=== PATIENT | female | born 1940 | race Caucasian/White ===

== ENCOUNTER 2016-11-13 00:39 | Emergency (ER) | payer MEDICARE ==
[~2016-11-13] VITALS: Ht 165.1 cm; Wt 42.0 kg
[~2016-11-13 00:39] MED LIST: ACET650T10 PO; CYCL5TAB PO; IBUP-1116 PO; LIDO5DIS35 TD
[2016-11-13 01:32] VITALS: BP 120/58; PULSE 58; RESP 20; TEMP 95; O2SAT 100
[2016-11-13] MEDS ORDERED: LOPE7.5C PO (01:43)
[2016-11-13] MEDS ORDERED: BENA25TA3 PO (01:43)
[2016-11-13] MEDS ORDERED: ZYRT10CA PO (01:43)
[2016-11-13] MEDS ORDERED: SENN8.6T17 PO (01:43)
[2016-11-13] MEDS ORDERED: AFRI0.052 EACH NARE (01:43)
[2016-11-13] MEDS ORDERED: CHOL4POW3 PO (01:43)
[2016-11-13] MEDS ORDERED: LIDOCAINE 1%/EPINEPHrine 1:100,000 SOLN 20 ML VIAL INFIL ONE (02:00)
--- NOTE | 2016-11-13 02:17 | RADRPT ---
EXAM DATE/TIME: 11/13/2016 01:58 [facility] COMPARISON: No previous studies available for comparison. INDICATIONS : Trauma. Fall. RADIATION DOSE: 28.59 CTDIvol (mGy) MEDICAL HISTORY : Dementia. SURGICAL HISTORY : None. ENCOUNTER: Initial ACUITY: 1 day PAIN SCALE: 2/10 LOCATION: Left cranial TECHNIQUE: Multiple contiguous axial images were obtained of the head. Using automated exposure control and adj ustment of the mA and/or kV according to patient size, radiation dose was kept as low as reasonably a chievable to obtain optimal diagnostic quality images. 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 The ventricles are normal for ag e. No evidence of midline shift, mass lesion, hemorrhage or acute infarction. No extra-axial fluid collections are seen. POSTERIOR FOSSA: The cerebellum and brainstem are intact. The 4th ventricle is midline. The cerebellopontine angle i s unremarkable. EXTRACRANIAL: The visualized portion of the orbits is intact. SKULL: The calvaria is intact. No evidence of skull fracture. CONCLUSION: No acute disease. Juan Ocampo Jr., MD on November 13, 2016 at 2:14 Board Certified Radiologist. This report was verified electronically.
--- NOTE | 2016-11-13 02:20 | RADRPT ---
EXAM DATE/TIME: 11/13/2016 01:58 [facility] COMPARISON: No previous studies available for comparison. INDICATIONS : Trauma. Fall. RADIATION DOSE: 7.55 CTDIvol (mGy) MEDICAL HISTORY : Dementia. SURGICAL HISTORY : None. ENCOUNTER: Initial ACUITY: 1 day PAIN SCALE: 2/10 LOCATION: neck TECHNIQUE: Volumetric scanning of the cervical spine was performed. Multiplanar reconstructions in the sagittal, coronal and oblique axial planes were performed. Using automated exposure control and adjustment o f the mA and/or kV according to patient size, radiation dose was kept as low as reasonably achievable to obtain optimal diagnostic quality images. FINDINGS: VERTEBRAE: Normal vertebral body height. ALIGNMENT: A mild grade 1 anterolisthesis of C2 on C3 with mild retrolisthesis of C5 on C6. C2-C3: The bony spinal canal is normal in size. No evidence of disc bulge or herniation. The neural forami na are bilaterally patent. C3-C4: The bony spinal canal is normal in size. No evidence of disc bulge or herniation. The neural forami na are bilaterally patent. C4-C5: The bony spinal canal is normal in size. No evidence of disc bulge or herniation. The neural forami na are bilaterally patent. C5-C6: Disc space narrowing with broad-based disc osteophyte complex. No central canal stenosis. Bony uncove rtebral hypertrophy generates bilateral neural foraminal narrowing. C6-C7: Disc space narrowing with broad-based disc osteophyte complex. No central canal stenosis. Bony uncove rtebral hypertrophy generates bilateral neural foraminal narrowing. C7-T1: The bony spinal canal is normal in size. No evidence of disc bulge or herniation. The neural forami na are bilaterally patent. CONCLUSION: 1. No fracture or dislocation. 2. Degenerative changes. Juan Ocampo Jr., MD on November 13, 2016 at 2:15 Board Certified Radiologist. This report was verified electronically.
--- NOTE | 2016-11-13 02:24 | RADRPT ---
EXAM DATE/TIME: 11/13/2016 01:58 [facility] COMPARISON: No previous studies available for comparison. INDICATIONS : Trauma. Fall. RADIATION DOSE: 29.45 CTDIvol (mGy) MEDICAL HISTORY : Dementia. SURGICAL HISTORY : None. ENCOUNTER: Initial ACUITY: 1 day PAIN SCORE: 2/10 LOCATION: Left facial TECHNIQUE: Volumetric scanning of the facial bones was performed. Using automated exposure control and adjustme nt of the mA and/or kV according to patient size, radiation dose was kept as low as reasonably achiev able to obtain optimal diagnostic quality images. FINDINGS: ORBITS: The orbital and infraorbital osseous structures are intact. The retroconal structures have a normal configuration. No radiopaque foreign bodies are seen. NASAL BONE: The nasal bone and maxillary spine are intact ZYGOMATIC ARCHES: Symmetric without evidence of fracture. SINUSES: The maxillary, ethmoid and frontal sinuses are intact. No air-fluid levels seen. NASAL CAVITY: The nasal septum is intact and midline. The lacrimal ducts are intact. SOFT TISSUES: No radiopaque foreign bodies seen. No soft-tissue swelling is seen. INTRACRANIAL: No intracranial air seen. CRIBIFORM PLATE: Grossly intact. 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 CONCLUSION: 1. No fracture or dislocation. 2. Suspected mild fusiform dilatation of the right carotid artery. An outpatient CTA of the carotids is suggested to evaluate. Juan Ocampo Jr., MD on November 13, 2016 at 2:19 Board Certified Radiologist. This report was verified electronically.
--- NOTE | 2016-11-13 02:31 | PD ---
Physical Exam Date Seen by Provider: November 13, 2016 Time Seen by Provider: 02:29 Narrative Skin: Patient has a laceration involving the left upper lip through the vermilion border. The overlying skin is avulsed and has a superficial flap. Laceration measures 2 cm. Data Data Last Documented VS Vital Signs Date Time Temp Pulse Resp B/P Pulse Ox O2 Delivery O2 Flow Rate FiO2 11/13/16 01:32 95.0 58 20 120/[address] Brain W/O Iv Contrast(Rout) (11/13/16 01:17) Ct Cerv Spine W/O Contrast (11/13/16 01:17) Ct Facial Bones W/O Iv Cont (11/13/16:17) Lidocai-Epi 1%-1:100,000 Inj (Xylocaine- (11/13/16 02:00) MDM Medical Record Reviewed: Yes Supervised Visit with MANDO: Yes Interpretation(s) Last [address] 11/13/16116 Signed Impressions: Service Date/Time: Sunday, November 13, 2016 01:58 - CONCLUSION: No acute disease. Juan Ocampo Jr., MD Cervical Spine CT 11/13/16116 Signed Impressions: Service Date/Time: Sunday, November 13, 2016 01:58 - CONCLUSION: 1. No fracture or dislocation. 2. Degenerative changes. Juan Ocampo Jr., MD Differential Diagnosis MDM: High Differential diagnoses: Fracture, sprain, strain, dislocation, contusion, neurovascular injury Narrative Course Patient's upper left lip lacerations closed with sutures. Procedures Procedure Narrative LACERATION LOCATION: Left upper lip through the vermilion border LENGTH: 2 cm NUMBER OF STITCHES/TY: 5 REPAIR: The area of the laceration was prepped with Betadine and sterilely draped. The laceration was infiltrated with 1% lidocaine with epinephrine. The wound was copiously irrigated and explored without evidence of foreign body , tendon injury or neurovascular injury. The wound was closed using 5-0 plain gut. This was a simple single layer repair. A sterile dressing was applied. The patient was advised to keep the dressing clean and dry. Patient tolerated the procedure well. Additional Instruction: Rest. Ice pack tonight. Tylenol or Advil for pain. Daily wound care with soap, water, Neosporin. Sutures are dissolvable and do not need to be removed.. Sunscreen and mederma for 6 months. Return to the ER for any problems. Luis Navas November 13, 2016 02:31
--- NOTE | 2016-11-13 02:43 | PD ---
HPI Chief Complaint: Fall Time Seen by Provider: 00:54 Travel History International Travel<30 days: No Contact w/Intl Traveler<30days: No Traveled to known affect area: No History of Present Illness HPI The patient is a 76 year old female who presents to the [facility] emergency department with a history of reportedly having a dream and rolling out of bed striking her left side of her face on her bedside table. She denies having a loss of consciousness. She denies having any nausea or vomiting after the head injury. She reports that she has a laceration above the left side of her lip. The patient also has swelling to the left cheek and ecchymosis developing around the left eye. The patient denies taking any blood thinners or aspirin. She denies having any neck pain, paresthesias, or weakness in her extremities. She denies having any chest pain, chest pressure, or shortness of breath. Review of systems otherwise she denies any recent fevers, cough, congestion, abdominal pain, diarrhea, urinary symptoms, or other neurologic symptoms. PFSH Past Medical History Narrative Medical The patient's past medical history is significant for osteoporosis, history of a compression fracture of her back. Dementia: Yes Tetanus Vaccination: Unknown Influenza Vaccination: No Past Surgical History Narrative Surgical The patient's past surgical history is reportedly none. Social History Alcohol Use: No Tobacco Use: No Substance Use: No Allergies-Medications (Allergen,Severity, Reaction): Coded Allergies: Bactrim (Verified Allergy, Intermediate, Nausea/Vomiting, 11/13/16) Reported Meds & Prescriptions Reported Meds & Active Scripts Active Acetaminophen Er (Acetaminophen) 650 Mg Tab 650 Mg PO Q6H PRN Reported Benadryl Allergy (Diphenhydramine HCl) 25 Mg Tab 25 Mg PO HS PRN Zyrtec Allergy (Cetirizine HCl) 10 Mg Cap 10 Mg PO DAILY Afrin Nasal [place] (Oxymetazoline HCl) 0.05% [place] 2-3 [place] EACH NARE Q12H PRN Imodium A-D (Loperamide HCl) 2 Mg Cap 2 Mg PO Q6H PRN Sennalax-S 8.6-50 mg (Sennosides-Docusate Sodium) 1 Tab Tab 8.6 PO PRN 1 Days Cholestyramine 4 Gm/Dose Powd 4 Gm PO BID 1 level scoopful of powder contains 4 grams of cholestyramine. Advil 200 Mg Tab (Ibuprofen) 200 Mg Tab 600 Mg PO Q8 PRN Review of Systems Except as stated in HPI: all other systems reviewed are Neg General / Constitutional: No: Fever Eyes: No: Visual changes HENT: Positive: Headaches, No: Rhinorrhea, Congestion, Neck Stiffness, Neck Pain Cardiovascular: No: Chest Pain or Discomfort Respiratory: No: Shortness of Breath Gastrointestinal: No: Abdominal Pain Genitourinary: No: Dysuria Musculoskeletal: No: Pain Skin: No Rash Neurologic: Positive: Headache, No: Weakness, Focal Abnormalities, Change in Mentation, Slurred Speech, Sensory Disturbance Psychiatric: No: Depression Endocrine: No: Polydipsia Hematologic/Lymphatic: No: Easy Bruising Physical Exam Narrative General: The patient is a well-developed well-nourished female in no acute distress. Head and Neck exam: Head is normocephalic, with evidence of trauma to the left side of the face. The patient has swelling to the left cheek with ecchymosis developing. The patient has ecchymosis developing beneath the left eye was some swelling noted. The patient has a laceration that is triangular in shape on the left upper lip. She has tenderness on palpation of the left cheek. There is no crepitus or step-off. No increase facial bone mobility. Eyes: EOMI, pupils are equal round and reactive to light. Nose: Midline septum with pink mucous membranes Mouth: Dentition unremarkable. Moist mucus membranes. Posterior oropharynx is not erythematous. No tonsillar hypertrophy. Uvula midline. Airway patent. Neck: No palpable lymphadenopathy. No nuchal rigidity. No thyromegaly. No spinous process tenderness to palpation, no step-off or crepitus, no erythema or ecchymosis. Cardiovascular: Regular rate and rhythm without murmurs, gallops, or rubs. Lungs: Clear to auscultation bilaterally. No wheezes, rhonchi, or rales. Abdomen: Soft, without tenderness to palpation in all 4 quadrants of the abdomen. No guarding, rebound, or rigidity. Normal bowel sounds are audible. No tenderness on palpation of McBurney's point. Negative Doyle's sign. Extremities: No clubbing, cyanosis, or edema. 2+ pulses in all 4 extremities. No calf tenderness on palpation. Back: No costovertebral angle tenderness to palpation. Neurologic Exam: Cranial nerves 2-12 were intact on exam. Strength is 5/5 in all 4 extremities. No sensory deficits noted. Skin Exam: No rash noted. Data Data Last Documented VS Vital Signs Date Time Temp Pulse Resp B/P Pulse Ox O2 Delivery O2 Flow Rate FiO2 11/13/16 01:32 95.0 58 20 120/[address] Brain W/O Iv Contrast(Rout) (11/13/16:17) Ct Cerv Spine W/O Contrast (11/13/16 01:17) Ct Facial Bones W/O Iv Cont (11/13/16 01:17) Lidocai-Epi 1%-1:100,000 Inj (Xylocaine- (11/13/16 02:00) MDM Medical Decision Making Medical Screen Exam Complete: Yes Emergency Medical Condition: Yes Medical Record Reviewed: Yes Differential Diagnosis Intracranial hemorrhage, versus cervical spine injury, versus facial bone fracture, versus contusion and laceration Narrative Course During the course of the patients emergency department visit, the patients history, examination, and differential diagnosis were reviewed with the patient. The patient had a CT scan of the head, neck, facial bones was ordered. Luis Leon the physician assistant account executive was consultative regarding wound cleansing and repair The patient was initially provided an update to her tetanus. The patient was given Keflex 500 by mouth 1. Denies pack was applied. Radiology studies were reviewed and remarkable for a CT scan of the brain that shows no acute abnormality, CT scan of the facial bones shows no fracture or dislocation, suspected mild fusiform dilatation of the right carotid artery, an outpatient CTA of the carotids is suggested to evaluate. CT scan of the C- spine shows degenerative changes, no acute abnormality. The patient was given a copy of her CT scan findings regarding her carotid. The patient was given a lab slip for a CTA of the neck to further evaluate with her primary care physician for follow-up. The patient is instructed to follow- up with her primary care physician for reexamination in 2 days. The patient is resting comfortably and feels better, is alert and in no distress. The patients results and examination findings were discussed with the patient. The repeat examination is unremarkable and benign. The history, exam, diagnostic testing, and current condition do not suggest any significant pathology to warrant further testing, continued ED treatment, admission, or surgical evaluation at this point. The vital signs have been stable. The patient does not have uncontrollable pain, intractable vomiting, or other significant symptoms. The patient's condition is stable and appropriate for discharge. The patient will pursue further outpatient evaluation with a primary care physician or other designated or consulting physician as indicated in the discharge instructions. The patient expressed understanding and was agreeable with this plan. Diagnosis Primary Impression: Head injury Qualified Code: S09.90XA - Head injury, initial encounter Additional Impressions: Facial laceration Qualified Code: S01.81XA - Facial laceration, initial encounter Facial contusion Qualified Code: S00.83XA - Facial contusion, initial encounter Referrals: Primary Care Physician Patient Instructions: Facial Laceration (ED), General Instructions, Head Injury (ED) Additional Instructions: Rest. Ice pack tonight. Tylenol or Advil for pain. Daily wound care with soap, water, Neosporin. Sutures are dissolvable and do not need to be removed.. Sunscreen and mederma for 6 months. Return to the ER for any problems. The patient is instructed regarding a suspected mild fusiform dilatation of the right carotid. The radiologist recommended an outpatient CTA of the carotids to further evaluate. The patient is given a lab slip to obtain this as an outpatient and follow-up with her primary care physician for follow-up. Disposition: 01 DISCHARGE HOME Condition: Stable Barbara Johnson MD November 13, 2016 02:43
[2016-11-13] MEDS ORDERED: DIPHTH/TETANUS/ACEL PERTUSSIS (BOOSTER) 0.5 ML VIAL/PFS IM ONE (02:45)
[2016-11-13] MEDS ORDERED: ACETAMINOPHEN 325 MG TAB PO ONE (02:45)
[2016-11-13] MEDS ORDERED: CEPHALEXIN MONOHYDRATE 500 MG CAP PO ONE (02:45)
[2016-11-13 03:00] VITALS: BP 110/60; PULSE 68; RESP 20; O2SAT 98
[2016-11-13 05:14] VITALS: BP 102/60
== END 2016-11-13 05:16 | disposition home or self-care (01) ==
LOC: NEPE 00:39
DX: S01.81XA Laceration without foreign body of other part of head, initial encounter (principal); W06.XXXA Fall from bed, initial encounter; Y93.84 Activity, sleeping; Z23 Encounter for immunization
CPT/HCPCS: 12011; 70450; 70486; 72125; 90471; 90715

== ENCOUNTER 2018-02-27 04:25 | Inpatient (IN) ==
[2018-02-27] MEDS ORDERED: Morphine Sulfate Inj 2 MG/ML Vial IV.PUSH ONE (04:34)
--- NOTE | 2018-02-27 04:37 | ED ---
HPI General Chief Complaint: Fall Stated Complaint: Dizziness,Evac Time Seen by Provider: 02/27/18 04:33 Source: patient and EMS Mode of arrival: ambulatory Limitations: no limitations History of Present Illness HPI Narrative: 77-year-old female arrives complaining of left hip pain. She stood up this evening and felt dizzy and fell to the ground. She landed on left side. She has had constant pain since then. The pain is worse with attempts at moving the left leg. No head trauma. The patient reports chronic dizziness upon standing for several months. No fever chills. No loss conscious. MD complaint: fall Onset (ago): hour(s) (2) Fall from: standing Place fall occurred: [facility] Loss of consciousness: none Prolonged down time: no Symptoms prior to fall: dizziness Related Data Home Medications Medication Instructions Recorded Confirmed sulfamethoxazole-trimethoprim 1 tab PO BID 02/27/18 02/27/18 [Bactrim] Allergies Allergy/AdvReac Type Severity Reaction Status Date / Time sulfamethoxazole Allergy Intermediate Nausea/Vomi Unverified 02/18/17 20:05 ting trimethoprim Allergy Intermediate Nausea/Vomi Unverified 02/18/17 20:05 ting Review of Systems ROS: all other systems reviewed are negative [facility] Medical History Medical History Back pain (Acute) Chronic pain (Acute) Inflammatory bowel disease (Acute) Irritable bowel disease (Acute) Social History Social History Substance History: No History of Abuse Smoking Status: Former smoker Tobacco Type: Cigarettes How Often Do You Have a Drink Containing Alcohol: Never Recent Travel in [facility] within the Last 8 Weeks: No Recent Out of Country Travel within the Last 8 Weeks: No Exam Narrative Exam Narrative: GENERAL: 77-year-old female thin, AO 3, minimal distress secondary to pain SKIN: Focused skin assessment warm/dry. HEAD: Atraumatic. Normocephalic. EYES: Pupils equal and round. No scleral icterus. No injection or drainage. ENT: No nasal bleeding or discharge. Mucous membranes pink and moist. NECK: Trachea midline. No JVD. CARDIOVASCULAR: Regular rate and rhythm. No murmur appreciated. RESPIRATORY: No accessory muscle use. Clear to auscultation. Breath sounds equal bilaterally. GASTROINTESTINAL: Abdomen soft, non-tender, nondistended. Hepatic and splenic margins not palpable. MUSCULOSKELETAL: No gross deformity. Pain with axial load of the left lower extremity. Patient is able to actively flex the hip and knee although limited on the left side. Right lower extremity flexion at knee and hip grossly preserved. NEUROLOGICAL: Awake and alert. No obvious cranial nerve deficits. Motor grossly within normal limits. Normal speech. PSYCHIATRIC: Appropriate mood and affect; insight and judgment normal. Course Initial Documented Vital Signs Temperature 98.2 F 02/27/18 04:31 Pulse Rate 79 02/27/18 04:31 Respiratory Rate 14 02/27/18 04:31 Blood Pressure 102/55 L 02/27/18 04:31 Pulse Oximetry 98 02/27/18 04:31 Last Documented Vital Signs Temperature 98.2 F 02/27/18 04:31 Pulse Rate 79 02/27/18 04:31 Respiratory Rate 14 02/27/18 04:31 Blood Pressure 102/55 L 02/27/18 04:31 Pulse Oximetry 98 02/27/18 04:33 Medical Decision Making MDM Narrative Medical decision making narrative: Pt has pubic rami fractures. Pt lives alone in an [facility]PC. Pt reports she is typically able to cook and bathe herself and perform basic frame opener. She has a walker at home but has not had to use it. Call placed to the [facility]. d/w Dr Norwood. 23 hour obs for pain control and gait evaluation/PT. Medical Screen Exam Complete: Yes Emergency Medical Condition: Yes Lab Data Lab results reviewed: Yes I reviewed the patient's lab results. Result diagrams: 02/27/18 05:20 02/27/18 05:20 Lab Results 02/27/18 02/27/18 Range/Units 05:20 05:20 WBC 8.1 (4.0-11.0) th/mm3 RBC 3.80 L (4.00-5.30) mil/mm3 Hgb 11.1 L (11.6-15.3) gm/dL Hct 30.9 L (35.0-46.0) % MCV 81.4 (80.0-100.0) fL MCH 29.1 (27.0-34.0) pg MCHC 35.7 (32.0-36.0) % RDW 20.3 H (11.6-17.2) % Plt Count 245 (150-450) th/mm3 MPV 7.7 (7.0-11.0) fL Prelim Diff (Auto) Slide review pending Neut % (Auto) 95.5 H (16.0-70.0) % Lymph % (Auto) 1.2 L (9.0-44.0) % [place] % (Auto) 2.7 (0.0-8.0) % Eos % (Auto) 0.0 (0.0-4.0) % Baso % (Auto) 0.6 (0.0-2.0) % Neut # (Auto) 7.7 (1.8-7.7) th/mm3 Lymph # (Auto) 0.1 L (1.0-4.8) th/mm3 [place] # (Auto) 0.2 (0.0-0.9) th/mm3 Eos # (Auto) 0.0 (0.0-0.4) th/mm3 Baso # (Auto) 0.1 (0.0-0.2) th/mm3 WBC Differential . Diff Scan Auto diff confirmed Differential Comment . Ovalocytes 1+ H (None) Sodium 133 L (136-145) meq/L Potassium 3.5 (3.5-5.1) meq/L Chloride 97 L (98-107) meq/L Carbon Dioxide 26.9 (21.0-32.0) meq/L Anion Gap 9 (5-15) meq/L BUN 15 (7-18) mg/dL Creatinine 0.84 (0.50-1.00) mg/dL Estimated GFR 66 L (>89) mL/min Random Glucose 88 (74-106) mg/dL Calcium 8.2 L (8.5-10.1) mg/dL Total Bilirubin 0.5 (0.2-1.0) mg/dL AST 30 (15-37) U/L ALT 25 (10-53) U/L Alkaline Phosphatase 148 H (45-117) U/L Total Protein 6.7 (6.4-8.2) g/dL Albumin 3.5 (3.4-5.0) g/dL Imaging Data Attestation: I personally reviewed and interpreted this imaging study as follows : My impression: Femur xray: pubic rami fractures, femur intact Pelvix xray: pubic rami fractures, femur intact Radiologist's impression: Femur X-Ray 02/27/18 04:33 CONCLUSION: 1. Fracture through the superior and inferior pubic rami on the left. 2. Femur itself is intact Hip X-Ray 02/27/18 04:33 CONCLUSION: 1. The hip itself is intact. 2. However, there are fractures through the superior and inferior pubic rami on the left Discharge Plan Discharge Disposition Patient Disposition: 30 Still Patient Physicians Team ED Provider: Jimbo Martínez Primary Care Provider: Primary Care Gwendolyn Murray Attending Provider: Sebastien Mason Discharge Interventions Interventions: Vital Signs Last Done: 02/27/18 04:37 Status ED Status: Admitted Observation Patient
[2018-02-27 05:43] LABS: Baso # (Auto) 0.1 th/mm3 (0.0-0.2); Baso % (Auto) 0.6 % (0.0-2.0); Hematocrit 30.9 % (35.0-46.0); Hemoglobin 11.1 gm/dL (11.6-15.3); Lymph # (Auto) 0.1 th/mm3 (1.0-4.8); Lymph % (Auto) 1.2 % (9.0-44.0); Mean Corpuscular HGB Conc 35.7 % (32.0-36.0); Mean Corpuscular Hemoglobin 29.1 pg (27.0-34.0); Mean Corpuscular Volume 81.4 fL (80.0-100.0); Mean Platelet Volume 7.7 fL (7.0-11.0); Mono # (Auto) 0.2 th/mm3 (0.0-0.9); Mono % (Auto) 2.7 % (0.0-8.0); Neut # (Auto) 7.7 th/mm3 (1.8-7.7); Neut % (Auto) 95.5 % (16.0-70.0); Platelet Count 245 th/mm3 (150-450); Red Cell Distribution Width 20.3 % (11.6-17.2); White Blood Count 8.1 th/mm3 (4.0-11.0)
[2018-02-27 05:45] LABS: Alanine Aminotransferase 25 U/L (10-53)
[2018-02-27 05:47] LABS: Alkaline Phosphatase 148 U/L (45-117); Total Protein 6.7 g/dL (6.4-8.2)
[2018-02-27 05:48] LABS: Albumin 3.5 g/dL (3.4-5.0); Aspartate Aminotransferase 30 U/L (15-37); Blood Urea Nitrogen 15 mg/dL (7-18); Calcium 8.2 mg/dL (8.5-10.1); Carbon Dioxide 26.9 meq/L (21.0-32.0); Chloride 97 meq/L (98-107); Glomerular Filtration Rate 66 mL/min (>89); Glucose,Random 88 mg/dL (74-106); Potassium 3.5 meq/L (3.5-5.1)
--- NOTE | 2018-02-27 05:53 | XR ---
EXAM DATE: 02/27/2018 5:12 AM EDT AGE/SEX: 77 years / Female INDICATIONS: Patient fell today. Left side groin pain since. CLINICAL DATA: This is the patient's initial encounter. Patient reports that signs and symptoms have been present for 1 day and indicates a pain score of 0/10. MEDICAL/SURGICAL HISTORY: Dementia. None. COMPARISON: [facility], HIP LEFT W AP PELVIS 2V, 02/27/2018. . FINDINGS: Mildly displaced fracture through the superior and inferior pubic rami on the left. Femur itself is i ntact CONCLUSION: 1. Fracture through the superior and inferior pubic rami on the left. 2. Femur itself is intact Electronically signed by: Niranjan Silverman MD 02/27/2018 5:52 AM EDT
--- NOTE | 2018-02-27 05:55 | XR ---
EXAM DATE: 02/27/2018 5:12 AM EDT AGE/SEX: 77 years / Female INDICATIONS: Left side groin pain post fall today. CLINICAL DATA: This is the patient's initial encounter. Patient reports that signs and symptoms have been present for 1 day and indicates a pain score of 0/10. MEDICAL/SURGICAL HISTORY: Dementia. None. COMPARISON: No prior exams available for comparison. FINDINGS: Fracture through the superior and probable inferior pubic rami on the left. Proximal femur appears to be intact CONCLUSION: 1. The hip itself is intact. 2. However, there are fractures through the superior and inferior pubic rami on the left Electronically signed by: Niranjan Silverman MD 02/27/2018 5:53 AM EDT
[2018-02-27 06:09] LABS: Ovalocytes 1+
[2018-02-27 06:12] LABS: Anion Gap 9 meq/L (5-15); Sodium 133 meq/L (136-145)
--- NOTE | 2018-02-27 08:13 | P.HPIM ---
History of Present Illness Primary Care Physician: Dr. Ike Ahuja History of Present Illness: Ms. Villarreal is a pleasant 77 y/o WF with hypotension, osteoporosis, chronic protein malnutrition, and hx of thoracic and lumbar compression fractures. She currently lives alone at [facility]. She reports that last night around 4 or 5 AM she woke up to use the bathroom and then started getting dressed. She states that she started feeling lightheaded after that and lost her balance and then fell onto her left side. She reports having severe pain in the left hip/high and on her lower back on the left side since the fall. She was brought to the ED for further evaluation. In the ED she was evaluated with a Femur X-Ray and a Hip X-Ray which noted fractures through the superior and inferior pubic rami on the left but the femur and hip were intact. She does not want any narcotic pain medications as she states that they "do not agree with her." Pt notes that for the last several months she has had issues with intermittent dizziness and lightheadedness. She was hospitalized at [facility] in 09/2017 and 10/2017 related to dizziness and syncope and sustained a lumbar compression fracture found during the hospitalization. She has issues with hypotension and was placed on Midodrine at that time as well. Its not clear if the pts dizziness/lightheadedness was previously attributed to her hypotension. Past Medical Hx: Thoracic and lumbar compression fractures, followed by Dr. Roberts Hypoalbuminemia, chronic protein malnutrition Osteoporosis Hypotension LE cellulitis in 10/2017 Iron deficiency anemia Irritable bowel syndrome (No previous colonoscopy) 2D echo (09/21/17): - Mild LVH - Estimated EF 55-60% - RV mildly dilated - RA is moderate to severely dilated - Aortic valve leaflets are mildly thickened - Mitral valve leaflets are mildly thickened. Mild mitral regurg - Moderate tricuspid regurg. RVSP is 27mmHg Past Surgical Hx: Thoracentesis on 10/16/17, right sided Tonsillectomy Family Hx: Noncontributory Social Hx: Denies any alcohol, tobacco or illicit drug use Pt lives at [facility]. She lives alone Pt is a Sh[employer] - Diagnosis (1) Pelvic fracture (2) Dizziness (3) Hypotension Review of Systems Constitutional: Denies chills, Denies fever(s) Eyes: Denies double vision, Denies loss of vision Ears, Nose, Mouth, and Throat: Reports dizziness, Denies headache(s), Denies nasal congestion Cardiovascular: Reports lightheadedness, Denies chest pain, Denies generalized swelling, Denies leg swelling, Denies shortness of breath Respiratory: Denies cough, Denies shortness of breath, Denies wheezing Gastrointestinal: Denies abdominal pain, Denies nausea, Denies vomiting Genitourinary: Denies urinary incontinence, Denies urinary urgency Musculoskeletal: Reports back pain, Reports joint pain Skin/Breast: Denies rash Neurologic: Reports dizziness, Denies fainting, Denies loss of vision, Denies numbness, Denies sensory deficit, Denies tingling/numbness/burning sensations PMFSH - History History Provided By: Patient - Medical History Medical History: Medical History (Last Reviewed 02/27/18 @ 08:41 by Jose Carlos Negron) Back pain Chronic pain Inflammatory bowel disease Irritable bowel disease - Tobacco History Smoking Status: Former smoker Tobacco Type: Cigarettes - Alcohol History How Often Do You Have a Drink Containing Alcohol: Never - Substance Use History Substance History: No History of Abuse - Travel History Recent Travel in the [facility] Within the Last 8 Weeks: No Recent Travel Out of the Country Within the Last 8 Weeks: No - Immunization History Tetanus Immunization: >5 Years Hx Influenza Vaccine This Season: No Medications and Allergies Active Medications: Active Medications Hydrocodone Bitart/Acetaminophen (Loving 5/325) 1 tab PO Q6H PRN PRN Reason: pain level 3-10 Ondansetron HCl (Zofran Inj) 4 mg IV.PUSH Q6H PRN PRN Reason: nausea, vomiting Sodium Chloride (Ns Flush) 2 ml IV.FLUSH UNSCH PRN PRN Reason: FLUSH AFTER USING IV ACCESS Allergies Allergy/AdvReac Type Severity Reaction Status Date / Time sulfamethoxazole Allergy Intermediate Nausea/Vomi Verified 02/27/18 10:02 ting trimethoprim Allergy Intermediate Nausea/Vomi Verified 02/27/18 10:02 ting Home Medications Medication Instructions Recorded Confirmed Type sulfamethoxazole-trimethoprim 1 tab PO BID 02/27/18 02/27/18 History [Bactrim] Exam Vital signs: Vital Signs 02/27/18 04:31 02/27/18 04:33 Temperature 98.2 F Pulse Rate 79 Respiratory Rate 14 Blood Pressure 102/55 L Pulse Oximetry 98 98 Intake & Output 08/23/18 08/24/18 08/24/18 18:59 06:59 18:59 Weight 38.555 kg Narrative: GENERAL: Thin, elderly female in NAD, AAOx3 SKIN: Two skin tears on the right paige, does not appear acutely infected HEAD: Atraumatic. Normocephalic. Pupils equal and round. No scleral icterus. No injection or drainage. No nasal bleeding or discharge. Mucous membranes pink and moist. NECK: Trachea midline. No JVD. CARDIO: Regular rate and rhythm. RESP: No accessory muscle use. Clear to auscultation. Breath sounds equal bilaterally. ABD: +BS, soft, non-tender, nondistended. EXT: Extremities without clubbing, cyanosis, or edema. NEURO: Awake and alert. No obvious cranial nerve deficits. Motor grossly within normal limits. Five out of 5 muscle strength in the arms and legs. Normal speech. PSYCHIATRIC: Appropriate mood and affect; insight and judgment normal. Results - Labs CBC & Chem 7: 02/27/18 05:20 02/27/18 05:20 Labs: Short CBC 02/27/18 Range/Units 05:20 WBC 8.1 (4.0-11.0) th/mm3 Hgb 11.1 L (11.6-15.3) gm/dL Hct 30.9 L (35.0-46.0) % Plt Count 245 (150-450) th/mm3 BMP 02/27/18 05:20 Sodium 133 L Potassium 3.5 Chloride 97 L Carbon Dioxide 26.9 BUN 15 Creatinine 0.84 Calcium 8.2 L Liver Function 02/27/18 Range/Units 05:20 Total Bilirubin 0.5 (0.2-1.0) mg/dL AST 30 (15-37) U/L ALT 25 (10-53) U/L Alkaline Phosphatase 148 H (45-117) U/L Albumin 3.5 (3.4-5.0) g/dL - Imaging Impressions Femur X-Ray 02/27/18 04:33 CONCLUSION: 1. Fracture through the superior and inferior pubic rami on the left. 2. Femur itself is intact Hip X-Ray 02/27/18 04:33 CONCLUSION: 1. The hip itself is intact. 2. However, there are fractures through the superior and inferior pubic rami on the left Caprini VTE Risk Assessment Caprini VTE Risk Assessment: Moderate/High Risk (score >= 2) Caprini Risk Assessment Model: Point Value = 1 Point Value = 2 Point Value = 3 Point Value = 5 Age 41-60 Minor surgery BMI > 25 kg/m2 Swollen legs Varicose veins or History of unexplained or recurrent spontaneous Oral contraceptives or hormone replacement Sepsis (< 1 month) Serious lung disease, including pneumonia (< 1 month) Abnormal pulmonary function Acute myocardial infarction Congestive heart failure (< 1 month) History of inflammatory bowel disease Medical patient at bed rest Age 61-74 Arthroscopic surgery Major open surgery (> 45 min) Laparoscopic surgery (> 45 min) Malignancy Confined to bed (> 72 hours) Immobilizing plaster cast Central venous access Age >= 75 History of VTE Family history of VTE Factor V Leiden Prothrombin [id number] Lupus anticoagulant Anticardiolipin antibodies Elevated serum homocysteine Heparin-induced thrombocytopenia Other congenital or acquired thrombophilia Stroke (< 1 month) Elective arthroplasty Hip, pelvis, or leg fracture Acute spinal cord injury (< 1 month) Prophylaxis Regimen: Total Risk Factor Score Risk Level Prophylaxis Regimen 0-1 Low Early ambulation 2 Moderate Order ONE of the following: *Sequential Compression Device (SCD) *Heparin 5000 units SQ BID 3-4 Higher Order ONE of the following medications: *Heparin 5000 units SQ TID *Enoxaparin/Lovenox 40 mg SQ daily (WT < 150 kg, CrCl > 30 mL/min) *Enoxaparin/Lovenox 30 mg SQ daily (WT < 150 kg, CrCl > 10-29 mL/min) *Enoxaparin/Lovenox 30 mg SQ BID (WT < 150 kg, CrCl > 30 mL/min) AND/OR *Sequential Compression Device (SCD) 5 or more Highest Order ONE of the following medications: *Heparin 5000 units SQ TID (Preferred with Epidurals) *Enoxaparin/Lovenox 40 mg SQ daily (WT < 150 kg, CrCl > 30 mL/min) *Enoxaparin/Lovenox 30 mg SQ daily (WT < 150 kg, CrCl > 10-29 mL/min) *Enoxaparin/Lovenox 30 mg SQ BID (WT < 150 kg, CrCl > 30 mL/min) AND *Sequential Compression Device (SCD) Assessment and Plan - Assessment (1) Pelvic fracture Code(s): S32.9XXA - Fracture of unspecified parts of lumbosacral spine and pelvis, initial encounter for closed fracture Status: Acute Plan: Superior and inferior pelvic rami fracture on left - Pt is a 77 y/o WF with hypotension, osteoporosis, chronic protein malnutrition , and hx of thoracic and lumbar compression fractures. - Overnight she started feeling lightheaded after that and lost her balance and then fell onto her left side. She reports having severe pain in the left hip/ high and on her lower back on the left side since the fall. - In the ED she was evaluated with a Femur X-Ray and a Hip X-Ray which noted fractures through the superior and inferior pubic rami on the left but the femur and hip were intact. - Pt does not want any narcotic pain meds - Tylenol and Ofirmev PRN for pain - PT evaluation - CM consultation for SNF placement - Consult wound care nurse for evaluation of skin tears. Pt had been started on Bactrim yesterday for the skin tears but currently they do not appear infected. Hold off on resuming any oral antibiotics at this time. - Supportive care Dizziness/lightheadedness Hypotension - Pt notes that for the last several months she has had issues with intermittent dizziness and lightheadedness. - She was hospitalized at [facility] in 09/2017 and 10/2017 related to dizziness and syncope and sustained a lumbar compression fracture found during the hospitalization. - She has issues with hypotension and was placed on Midodrine at that time as well but is no longer taking this. - Its not clear if the pts dizziness/lightheadedness was previously attributed to her hypotension. - Place pt on telemetry - Check orthostatic vital signs - Encourage oral intake, add supplements with Ensure TID - PT ordered (2) Dizziness Code(s): R42 - Dizziness and giddiness Status: Acute (3) Hypotension Code(s): I95.9 - Hypotension, unspecified Status: Acute
--- NOTE | 2018-02-27 11:35 | P.PNWCN ---
Wound Care Nurse Consult Description: wound consult ordered by Alvina ROMAN Communicated with: [place] ANTUNEZ, Alvina ROMAN Recommendation: 1. Cleanse right lower extremity skin tear with normal saline pat dry. 2. Skin prep rosemarie wound, apply thin layer of bacitracin oint to open area . 3. Cover with Versatel silicone contact layer, Versatel to remain in place x7 days. 4. Secure with rolled gauze, Sign and date all dressings.Change secondary dressing as needed for dislodgement/exudate. Additional information: Supplies delivered to patients room for skin tear to right paige.[place] ANTUNEZ to apply dressing per wound care guide lines. Wound/Pressure Injury - Wound Right Paige Wound Assessment: Admission Wound Type: Skin Tear Is This a Chronic Wound: No Requested from Provider a Wound Care Consult: (wound care has seen patient) Wound Bed Appearance: Red Surrounding Tissue Appearance: Blanched/Dull, Erythema Surrounding Tissue Temperature: Warm Drainage Description: Serosanguinous Drainage Amount: None Dressing Status: Dry & Intact, Changed Topical: Bactroban Primary Dressing: silicone Cover Dressing: Gauze Roll/Wrap Tape Type: Paper
[2018-02-27] MEDS: Senna/Docusate Sodium 8.6/50 MG Tablet PO SCH (20:38)
[2018-02-27] MEDS: Acetaminophen 325 MG Tablet PO PRN (20:38)
[2018-02-27] MEDS ORDERED: Sodium Chlor 0.9% Inj 250 ML IV.SIG ONE (23:00)
[2018-02-28] MEDS: Acetaminophen 325 MG Tablet PO PRN ×2 (05:42→09:33)
[2018-02-28] MEDS: Senna/Docusate Sodium 8.6/50 MG Tablet PO SCH (09:33)
--- NOTE | 2018-02-28 11:53 | P.PNIM ---
Subjective Interval history: Pt is doing well and is able to ambulate with the use of her walker. SHe was noted to have some orthostasis going from lying down to sitting up yesterday and was resumed on Midodrine She reports that her systolic BP is typically in the 90-low 100s She denies any dizziness or weakness this morning. She is planned for discharge to SNF for rehab. Physical Exam Vital signs: Vital Signs 02/27/18 13:01 02/27/18 14:24 02/27/18 14:26 Temperature 98.2 F Pulse Rate 70 60 66 Respiratory Rate 18 Blood Pressure 120/68 88/60 L 113/60 Pulse Oximetry 96 96 02/27/18 18:00 02/27/18 20:00 02/28/18 00:00 Temperature 98.1 F 97.9 F 97.8 F Pulse Rate 63 62 60 Respiratory Rate 16 16 16 Blood Pressure 79/43 L 84/47 L 91/52 L Pulse Oximetry 98 98 98 02/28/18 01:46 02/28/18 04:00 02/28/18 08:00 Temperature 97.8 F 97.3 F L Pulse Rate 57 L 56 L Respiratory Rate 15 16 18 Blood Pressure 91/52 L 88/51 L Pulse Oximetry 98 98 02/28/18 08:55 02/28/18 08:56 Temperature Pulse Rate 66 65 Respiratory Rate Blood Pressure 101/58 L 97/53 L Pulse Oximetry 97 95 Intake & Output 02/27/18 02/28/18 02/28/18 18:59 06:59 18:59 Intake Total 220 / 220 250 / 250 Balance 220 / 220 250 / 250 Weight 38.5 kg 38.4 kg Intake: IV 100 / 100 250 / 250 Ofirmev Inj 1,000 mg In 100 ml 100 / 100 @ 400 mls/hr IV.SIG Q6H PRN Rx# :[id number] NS Inj 250 ML @ Wide Open IV. 250 / 250 SIG BOLUS ONE Rx#:[id number] Oral 120 / 120 Other: Date of Last Bowel Movement 02/25/18 Weight On Admission 38.5 kg Narrative: General: NAD, AAOx3 Chest: CTA Cardiac: Regular Abd: +BS, soft ND/NT Ext: No edema, wound dressing to the RLE are c/d/i Results - Labs CBC & Chem 7: 02/27/18 05:20 02/27/18 05:20 - Imaging Femur X-Ray 02/27/18 04:33 CONCLUSION: 1. Fracture through the superior and inferior pubic rami on the left. 2. Femur itself is intact Hip X-Ray 02/27/18 04:33 CONCLUSION: 1. The hip itself is intact. 2. However, there are fractures through the superior and inferior pubic rami on the left Assessment and Plan - Assessment (1) Pelvic fracture Code(s): S32.9XXA - Fracture of unspecified parts of lumbosacral spine and pelvis, initial encounter for closed fracture Status: Acute Plan: Superior and inferior pelvic rami fracture on left - Pt is a 77 y/o WF with hypotension, osteoporosis, chronic protein malnutrition , and hx of thoracic and lumbar compression fractures. - Overnight she started feeling lightheaded after that and lost her balance and then fell onto her left side. She reports having severe pain in the left hip/ high and on her lower back on the left side since the fall. - In the ED she was evaluated with a Femur X-Ray and a Hip X-Ray which noted fractures through the superior and inferior pubic rami on the left but the femur and hip were intact. - Pt does not want any narcotic pain meds - Tylenol and Ofirmev PRN for pain - PT recommending rehab - CM consultation for SNF placement, pt requesting [facility]. - Appreciate wound care nurse for evaluation of skin tears. Recommendation: 1. Cleanse right lower extremity skin tear with normal saline pat dry. 2. Skin prep rosemarie wound, apply thin layer of bacitracin oint to open area . 3. Cover with Versatel silicone contact layer, Versatel to remain in place x7 days. 4. Secure with rolled gauze, Sign and date all dressings.Change secondary dressing as needed for dislodgement/exudate. - Plan is for discharge to SNF today once placement is arranged. - Pt will need to followup with her PCP, Dr. Ike Ahuja, 1 week after discharge from SNF. Dizziness/lightheadedness Hypotension - Pt notes that for the last several months she has had issues with intermittent dizziness and lightheadedness. - She was hospitalized at [facility] in 09/2017 and 10/2017 related to dizziness and syncope and sustained a lumbar compression fracture found during the hospitalization. - She has issues with hypotension and was placed on Midodrine at that time as well but is no longer taking this. - Pt is noted to be orthostatic going from lying down to sitting up yesterday. Is not clear if the pts dizziness/lightheadedness was previously attributed to her hypotension. - No events on telemetry - Pt was started on Midodrine 2.5mg TID and this will be continued upon discharge. - Encourage oral intake, add supplements with Ensure TID The exam, history, and the medical decision-making described in the above note were completed with the assistance of the mid-level provider. I reviewed and agree with the findings presented. I attest that I had a [id number] encounter with the patient on the same day, and personally performed and documented my assessment and findings in the medical record. dc to snf. stable. weight bear as tolerated with walker.. (2) Dizziness Code(s): R42 - Dizziness and giddiness Status: Acute (3) Hypotension Code(s): I95.9 - Hypotension, unspecified Status: Acute
[2018-03-01] MEDS ORDERED: Bisacodyl 10 MG Supp RECTAL SCH (09:00)
== END 2018-02-28 18:18 ==
LOC: NEDA 04:25 → NEPE 04:25 → NEPFCDU 08:00 → N06 17:43
PROVIDERS: ADMIT Hospitalist; ATTEND Hospitalist